=== PATIENT | male | born 2000 | race Caucasian/White ===

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

== ENCOUNTER → 2023-07-28 | Outpatient (CLI) | payer BC ==
--- NOTE | 2023-07-28 11:57 | XR ---
EXAMINATION TYPE: XR chest 2V DATE OF EXAM: 07/28/2023 COMPARISON: NONE HISTORY: Polycythemia. TECHNIQUE: Frontal and lateral views of the chest are obtained. FINDINGS: There is no focal air space opacity, pleural effusion, or pneumothorax seen. The cardiac silhouette size is within normal limits. The osseous structures are intact. IMPRESSION: No acute cardiopulmonary process.
== END | disposition home or self-care (01) ==
LOC: RADXRMAIN 11:32
PROVIDERS: ATTEND Internal Medicine Hematology & Oncology
DX: D45 Polycythemia vera (principal); E83.10 Disorder of iron metabolism, unspecified; E63.9 Nutritional deficiency, unspecified
CPT/HCPCS: 71046

== ENCOUNTER → 2024-10-12 | Outpatient (CLI) | payer BC ==
[2024-10-12 22:32] LABS: Basophils # (A) 0.03 X 10*3/uL (0.00-0.10); Basophils % (A) 0.7 %; Eosinophils # (A) 0.04 X 10*3/uL (0.04-0.35); Eosinophils % (A) 0.9 %; HCT 52.4 % (39.6-50.0); HGB 17.8 g/dL (13.0-17.0); Lymphocytes # (A) 1.34 X 10*3/uL (0.90-5.00); Lymphocytes % (A) 29.1 %; MCH 32.4 pg (27.0-32.0); MCV 95.4 FL (80.0-97.0); Mean Platelet Volume 10.5 FL (9.5-12.2); Monocytes # (A) 0.57 X 10*3/uL (0.20-1.00); Monocytes % (A) 12.4 %; NRBC Per 100 WBC 0 X 10*3/uL (0.00-0.01); Neutrophils # (A) 2.61 X 10*3/uL (1.80-7.70); Neutrophils % (A) 56.7 %; Platelet Count 236 X 10*3/uL (140-440); RBC 5.49 X 10*6/uL (4.40-5.60); RDW 11.5 % (11.5-14.5)
[2024-10-12 22:55] LABS: ALT 33 U/L (10-49); AST 27 U/L (14-35); Albumin 4.5 g/dL (3.8-4.9); Albumin/Globulin Ratio 1.88 Ratio (1.60-3.17); Alkaline Phosphatase 68 U/L (41-126); BUN/Creat Ratio 13.56 Ratio (12.00-20.00); Blood Urea Nitrogen 12.2 mg/dL (9.0-27.0); Calcium 9.6 mg/dL (8.7-10.3); Carbon Dioxide 27.8 mmol/L (21.6-31.8); Chloride 105 mmol/L (96-109); Chol/HDL Ratio 3.96 Ratio; Globulin 2.4 g/dL (1.6-3.3); Glucose 89 mg/dL (70-110); LDL Cholesterol,Calculated 103.3 mg/dL (0.0-131.0); Potassium 4.8 mmol/L (3.5-5.5); Sodium 142 mmol/L (135-145); Total Bilirubin 0.9 mg/dL (0.3-1.2); Total Protein 6.9 g/dL (6.2-8.2); VLDL Calculation 12.64 mg/dL (5.00-40.00)
== END | disposition home or self-care (01) ==
LOC: LABWHC1 10:51
PROVIDERS: ATTEND Family Medicine
DX: Z00.00 Encounter for general adult medical examination without abnormal findings (principal)
CPT/HCPCS: 36415; 80053; 80061; 82306; 84443; 85025